=== PATIENT | female | born 1960 | race Caucasian/White ===

== ENCOUNTER 2018-08-13 10:03 | Emergency (ER) | payer OTHER ==
--- NOTE | 2018-08-13 10:41 | EDM.PDOC ---
ED HPI GENERAL MEDICAL PROBLEM - General Chief Complaint: ENT Problem Stated Complaint: HAD TOOTH PULLED & HAS PAIN Time Seen by Provider: 08/13/18 10:15 Source of Information: Reports: Patient History Limitations: Reports: No Limitations - History of Present Illness INITIAL COMMENTS - FREE TEXT/NARRATIVE: 58-year-old female with right mandibular pain, dental in nature after having 2 procedures by the dentist. The first was 2-1/2 weeks ago she had a molar removed on the right side, she continued to have pain so 5 days ago she was rechecked, x-rays were done and she had an additional, 'root removed". She was placed on antibiotics but she forgot her antibiotics at home and is now on vacation and will be leaving for [place] in the next couple of days. Onset: Gradual Location: Reports: Other (Right jaw) Associated Symptoms: Reports: No Other Symptoms Right Lower Jaw Pain Score (Numeric/FACES): 4 - Related Data Allergies Allergy/AdvReac Type Severity Reaction Status Date / Time No Known Allergies Allergy Verified 08/13/18 10:22 Home Meds: Home Meds Lisinopril 10 mg PO DAILY 08/13/18 [History] glipiZIDE [Glipizide ER] 10 mg PO DAILY 08/13/18 [History] metFORMIN [Glucophage] 4,000 mg PO DAILY 08/13/18 [History] Past Medical History HEENT History: Reports: Impaired Vision Cardiovascular History: Reports: High Cholesterol, Hypertension Genitourinary History: Reports: None 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: Endocrine/Metabolic History: Reports: Diabetes, Type II Oncologic (Cancer) History: Reports: Uterine - Infectious Disease History Infectious Disease History: Reports: Chicken Pox, Measles, Mumps - Past Surgical History Head Surgeries/Procedures: Reports: None Cardiovascular Surgical History: Reports: None Female Surgical History: Reports: Hysterectomy Endocrine Surgical History: Reports: None Oncologic Surgical History: Reports: None Dermatological Surgical History: Reports: None Social & Family History - Tobacco Use Smoking Status *Q: Former Smoker Years of Tobacco use: 10 Used Tobacco, but Quit: Yes Month/Year Tobacco Last Used: 07/2018 Second Hand Smoke Exposure: No - Caffeine Use Caffeine Use: Reports: Coffee - Recreational Drug Use Recreational Drug Use: No ED ROS ENT - Review of Systems Review Of Systems: See Below Constitutional: Denies: Fever, Chills HEENT: Reports: Dental Pain, Other (Slight facial swelling on the right) Respiratory: Denies: Shortness of Breath GI/Abdominal: Reports: No Symptoms Skin: Denies: Erythema Neurological: Denies: Headache Psychiatric: Reports: No Symptoms ED EXAM, ENT - Physical Exam Exam: See Below Exam Limited By: No Limitations General Appearance: Alert, Mild Distress (Looks fairly uncomfortable) Mouth/Throat: Other (She does have a recent extraction site of the second molar of the right mandible, no significant dry socket visible but there is some erythema. Very tender on the mandible externally with some slight swelling) Respiratory/Chest: No Respiratory Distress Neurological: Alert, Oriented Psychiatric: Anxious Skin: Warm, Dry. No: Erythema Course - Vital Signs Last Recorded V/S: Last Vital Signs Temp 96.5 F 08/13/18 10:24 Pulse 68 08/13/18 10:24 Resp 17 08/13/18 10:24 BP 170/83 H 08/13/18 10:24 Pulse Ox 100 08/13/18 10:24 - Re-Assessments/Exams Free Text/Narrative Re-Assessment/Exam: 08/13/18 10:40 Patient was restarted on amoxicillin 500 mg 3 times a day and given 10 day supply. She was encouraged to continue with ibuprofen and Tylenol, and given 10 hydrocodone for extra pain control for breakthrough pain. A CHIEF RADIATION THERAPIST search was done and was negative for this patient for the past year. Departure - Departure Time of Disposition: 10:48 Disposition: Home, Self-Care 01 Clinical Impression: Dental abscess - Discharge Information Instructions: Dental Abscess, [id number] Referrals: PCP,None [Primary Care Provider] - Forms: ED Department Discharge Care Plan Goals: Restart antibiotic as directed, continue with ibuprofen and Tylenol for pain, and use hydrocodone with Tylenol if needed if pain is not controlled for the next couple of days.
== END 2018-08-13 10:48 | disposition home or self-care (01) ==
LOC: JP.ED 10:03
DX: K04.7 Periapical abscess without sinus (principal); E11.9 Type 2 diabetes mellitus without complications; I10 Essential (primary) hypertension; E78.00 Pure hypercholesterolemia, unspecified; Z79.84 Long term (current) use of oral hypoglycemic drugs; Z79.899 Other long term (current) drug therapy; Z87.891 Personal history of nicotine dependence
CPT/HCPCS: 99282

== ENCOUNTER 2021-04-08 07:06 | Emergency (ER) | payer MEDICAID, OTHER ==
[2021-04-08] MEDS ORDERED: oxyCODONE 5 MG Tab PO ONE (07:43)
[2021-04-08] MEDS ORDERED: Gadoteridol 279.3 MG/ML 15 ML SDV IV SCH (12:00)
== END 2021-04-08 11:40 | disposition home or self-care (01) ==
LOC: JP.ED 07:06
DX: M54.42 Lumbago with sciatica, left side (principal); I10 Essential (primary) hypertension; E11.9 Type 2 diabetes mellitus without complications; Z90.710 Acquired absence of both cervix and uterus; Z79.84 Long term (current) use of oral hypoglycemic drugs; Z79.899 Other long term (current) drug therapy
CPT/HCPCS: 72158; 99283; A9270; A9579

== ENCOUNTER 2021-04-09 00:20 | Emergency (ER) | payer MEDICAID | END 2021-04-09 01:25 | disposition home or self-care (01) | LOC: JP.ED 00:20 | DX: M54.50 Low back pain, unspecified (principal); E78.00 Pure hypercholesterolemia, unspecified; I10 Essential (primary) hypertension; E11.9 Type 2 diabetes mellitus without complications; Z79.899 Other long term (current) drug therapy; Z79.84 Long term (current) use of oral hypoglycemic drugs; Z72.0 Tobacco use | CPT/HCPCS: 99283 ==